=== PATIENT | female | born 1965 | race Caucasian/White ===

== ENCOUNTER 2019-10-11 16:03 | Outpatient (CLI) | payer BC ==
--- NOTE | 2019-10-11 16:29 | RAD ---
XR Chest Pa Lat STANDARD HISTORY: Acute pain to the right shoulder COMPARISON: 11/14/2014 FINDINGS: The heart size is normal. The lungs are well expanded without focal areas of consolidation, pneumothorax or pleural effusions. IMPRESSION: No radiographic evidence of acute cardiopulmonary process.
--- NOTE | 2019-10-11 16:29 | RAD ---
Right shoulder 3 views HISTORY: Shoulder pain. FINDINGS: Acromioclavicular and glenohumeral alignment are maintained with mild osteophytosis. Curvil inear focus of amorphous calcification projects over the distal aspect of the rotator cuff. No acute fracture, dislocation, or aggressive osseous erosions. Calcination overlies the aortic arch. IMPRESSION : Mild osteoarthritic changes. Findings of calcific tendinosis. No acute osseous abnormalities are demonstrated. Atherosclerosis.
== END 2019-10-11 16:04 | disposition home or self-care (01) ==
LOC: NAV RAD 16:03
PROVIDERS: ATTEND Internal Medicine
DX: M25.511 Pain in right shoulder (principal); M19.011 Primary osteoarthritis, right shoulder; I70.0 Atherosclerosis of aorta; M25.811 Other specified joint disorders, right shoulder
CPT/HCPCS: 71046

== ENCOUNTER 2021-07-16 08:37 | Outpatient (CLI) | payer BC | END 2021-07-16 08:38 | disposition home or self-care (01) | LOC: NAV RAD 08:37 | PROVIDERS: ATTEND Family Medicine | DX: R05.9 Cough, unspecified (principal) | CPT/HCPCS: 71046 ==